=== PATIENT | male | born 1975 | race Caucasian/White ===

== ENCOUNTER 2020-07-27 20:50 | Emergency (ER) | payer OTHER, SELFPAY ==
[2020-07-27 21:35] VITALS: BP 191/103; PULSE 113; RESP 18; TEMP 37.7; O2SAT 95; BMI 33.3
--- NOTE | 2020-07-27 22:21 | XR_ITS ---
EXAMINATION: XR CHEST CLINICAL INFORMATION: Cough COMPARISON: None TECHNIQUE: Frontal view of the chest was obtained. FINDINGS: Cardiac silhouette is normal in size. Lungs are well aerated without lobar consolidation. No pleural effusion or pneumothorax. Suspected pectus bar implant demonstrates a central fracture but maintained alignment. XR/XR chest 1V IMPRESSION: No acute pulmonary pathology.
--- NOTE | 2020-07-27 22:22 | ED.URI ---
HPI - URI/Sore Throat General Chief Complaint: Upper Respiratory Symptoms Stated Complaint: sob Time Seen by Provider: 07/27/20 22:21 Source: patient Mode of arrival: ambulatory Limitations: no limitations History of Present Illness MD elicited complaint: cough and other (loss of taste and smell, depression) Onset (ago): day(s) (4) Consistency: constant Severity: moderate Description of mucous: clear Able to tolerate fluids by mouth: Yes Exacerbating factors: exertion Relieving factors: nothing Context: other (apartment was worked on and lots of dust in apartment) Associated symptoms: chills, cough and shortness of breath Treatments prior to arrival: none Related Data Home Medications Medication Instructions Recorded Confirmed No Known Home Meds 07/27/20 07/27/20 Allergies Allergy/AdvReac Type Severity Reaction Status Date / Time No Known Allergies Allergy Verified 07/27/20 21:34 Review of Systems Review of Systems: Constitutional : no Fever, positive Chills, positive fatigue, positive Malaise ENT/Mouth : no sore throat, no runny nose Eyes: No Discharge Cardiovascular : No Chest Pain, pos SOB Respiratory : pos Cough, No Sputum Gastrointestinal : No Nausea, No Vomiting, No Diarrhea Genitourinary : No Dysuria, No Urinary Frequency Musculoskeletal : positive Myalgia Skin : No rash Neuro : No Headache Psych: + anxiety/depression, + SI, no HI PMFSH Past Medical History Attestation statement: The following information was validated with the patient. Medical History No known health problems Social History Social History (Updated 07/27/20 @ 22:50 by Liseth Collins DO) Alcohol intake: current Alcohol intake frequency: holidays/special occasions only Alcohol type: wine and hard liquor Smoking Status: Former smoker Use of substances other than those prescribed or required for medical reasons: No Substance Use Type: Marijuana Advance Directives: No Advance Directives Information Provided: Yes Physical Exam Vital Signs: Vital Signs: Vital Signs Temp Pulse Resp BP Pulse Ox 07/27/20 23:15 100.9 F H 107 H 18 150/94 H 98 07/27/20 23:10 98 07/27/20 21:35 99.9 F 113 H 18 191/103 H 95 Body Mass Index 33.3 Appearance: Alert. Oriented X3. No acute distress. Eyes: Pupils equal, round and reactive to light. ENT: Pharynx normal. Neck: Normal inspection. Neck supple. CVS: Normal heart rate and rhythm. Pulses normal. Respiratory: No respiratory distress. Breath sounds normal. Dry cough Abdomen: Soft and nontender. Skin: Skin warm and dry. Normal skin color. Normal skin turgor. Extremities: No lower extremity edema. No calf ttp Neuro: Oriented X 3. No motor deficit. No sensory deficit. Course Course Course Narrative: POSITIVE COVID, ELOPED from the ED MDM - URI/Sore Throat MDM Narrative Medical decision making narrative: 44 yo male with c/o loss of taste and smell dry cough for 4 days - here for COVID test, not toxic, no hypoxia, clear lungs - COVID swab, CXR, INH ordered - also c/o depression and SI no plan wants to talk to crisis Lab Data Labs: Lab Results 07/27/20 Range/Units 23:23 Coronavirus (PCR) POSITIVE A (Negative) Discharge Plan Discharge Clinical Impression: COVID-19 Patient Disposition: Elopement Instructions: COVID-19 (Coronavirus Disease 2019) (ED) Prescriptions: No Action No Known Home Meds RF: 0
[2020-07-27] MEDS: Albuterol Sulfate 90 MCG 8 GM INHALER 2 PUFF INHALE (22:53)
--- NOTE | 2020-07-27 23:03 | PC.NURSE ---
SARS COVID BY PCR WAS ORIGINALLY ORDERED AND WAS COLLECTED. NEW ORDER FOR RAPID COVID NOTED. N WAS ORDERED FOR PATIENT C/O SI AND WANTING TO TALK TO [facility]. REPORT GIVEN TO TUCKER NOGUERA.
[2020-07-27 23:10] VITALS: O2SAT 98
[2020-07-27 23:15] VITALS: BP 150/94; PULSE 107; RESP 18; TEMP 38.3; O2SAT 98
[2020-07-28 00:24] LABS: SARS COV2 PCR INHOUSE POSITIVE (Negative)
--- NOTE | 2020-07-28 01:25 | PC.NURSE ---
Pt denied SI during sonography technologist. When doctors went to re-eval pt, pt was not in the hallway.
== END 2020-07-28 00:15 | disposition left against medical advice (07) ==
PROVIDERS: Emergency Provider Emergency Medicine
DX: U07.1 COVID-19 (principal); R05 Cough; Z87.891 Personal history of nicotine dependence
CPT/HCPCS: 71045; 87635; 99284